=== PATIENT | male | born 2000 | race Two or more races ===

== ENCOUNTER 2022-10-18 08:43 | Outpatient (CLI) | payer OTHER | END 2022-10-18 08:45 | disposition home or self-care (01) | LOC: EDBD 08:43 → RAD 08:43 | PROVIDERS: ATTEND Internal Medicine Cardiovascular Disease | DX: R53.83 Other fatigue (principal) ==

== ENCOUNTER 2023-08-27 09:55 | Emergency (ER) | payer OTHER ==
[~2023-08-27] VITALS: Ht 167.6 cm; Wt 99.8 kg
[2023-08-27 11:47] LABS: HEMATOCRIT 43.5 % (39.0-48.0); HEMOGLOBIN 14.9 g/dL (13-16.00); MEAN CELL VOLUME 81.1 fL (80.0-100.00); MEAN CORPUSCULAR HEMOGLOBIN 27.7 pg (27.00-32.0); MEAN CORPUSCULAR HGB CONC 34.2 g/dl (32.0-36.0); PLATELET COUNT 184 K/uL (150-450); RED BLOOD COUNT 5.37 M/uL (4.00-6.00)
[2023-08-27 12:01] LABS: BILIRUBIN TOTAL 0.46 mg/dL (0.3-1.2); CALCIUM 8.8 mg/dL (8.5-10.1); CREATININE SERUM 0.99 mg/dL (0.70-1.30); GFR 95.42; GLOBULINA 3.5 G/DL (2.4-3.5); TOTAL PROTEIN 7.5 gm/dL (6.4-8.2)
[2023-08-27 12:33] LABS: URINE APPEARANCE Clear; URINE BILIRRUBIN Negative (NEGATIVE); URINE BLOOD Negative; URINE COLOR Yellow; URINE GLUCOSE Negative (NEGATIVE); URINE LEUKOCYTE Negative; URINE NITRATE Negative; URINE PROTEIN Negative (NEGATIVE)
[2023-08-27 12:36] LABS: URINE EPITHELIAL CELLS 2.6 uL (0.0-38.8); URINE RBC 6.3 uL (0.0-20.8); URINE WBC 1.8 uL (0.0-23.2)
[2023-08-27 12:37] LABS: URINE BACTERIA 1.2 uL (0.0-1933)
== END 2023-08-27 22:27 | disposition home or self-care (01) ==
LOC: ER 09:56
PROVIDERS: General Practice
DX: B34.9 Viral infection, unspecified (principal); Z87.09 Personal history of other diseases of the respiratory system; Z20.822 Contact with and (suspected) exposure to COVID-19

== ENCOUNTER 2024-05-17 12:23 | Outpatient (CLI) | payer OTHER | END 2024-05-17 12:34 | disposition home or self-care (01) | LOC: SONOGRAMA 12:23 | DX: N47.1 Phimosis (principal) ==